=== PATIENT | female | born 1995 | race Caucasian/White ===

== ENCOUNTER 2016-10-13 20:37 | Emergency (ER) | payer OTHER, SELFPAY ==
[~2016-10-13 20:37] MED LIST: BIRTH CONTROL MED; NORCO 5/325 TAB1 TAB PO; TYLENOL #31 TA1 PO; [UNRECOGNIZED DRUG - REMARK]
[2016-10-13] MEDS ORDERED: CIPRO500 M2 PO (21:03)
[2016-10-13] MEDS ORDERED: IBUPROFEN200 M3 PO (21:03)
[2016-10-13 21:35] LABS: BASO % 0.2 % (0-2); EOS % 0.1 % (0-7); HCT-HEMATOCRIT 36.7 % (34.0-49.0); HGB-HEMOGLOBIN 12.3 gm/dl (12.0-15.5); IMMATURE GRANULOCYTES ABSOLUTE 0.01 tho/cmm (0-0.03); IMMATURE GRANULOCYTES PERCENT 0.1 % (0-0.3); LYMPH % 8.7 % (20-45); LYMPH ABSOLUTE COUNT 1.1 tho/cmm (0.8-4.5); MCH (MEAN CORPUSCULAR HGB) 28.9 pg (28.0-32.0); MCHC MEAN CORPUSCULAR HGB CONC 33.5 % (32.0-36.0); MCV (MEAN CELL VOLUME) 86.2 fl (82.0-96.0); MEAN PLATELET VOLUME 9.6 cmc (9.4-12.4); MONO % 14.4 % (0-12); MONOCYTE ABSOLUTE COUNT 1.7 tho/cmm (0.0-1.2); NEUTROPHIL ABSOLUTE COUNT 9.2 tho/cmm (1.6-8.0); NEUTROPHIL-AUTOMATED 9.2 tho/cmm (1.6-8.0); NEUTROPHILS % 76.5 % (40-80); PLATELET COUNT 198 tho/cmm (150-450); RED BLOOD COUNT 4.26 mil/cmm (4.00-5.20); RED CELL DISTRIBUTION WIDTH 12.9 % (12.4-16.4); WHITE BLOOD COUNT 12.1 tho/cmm (4.0-10.0)
[2016-10-13 21:49] LABS: PREGNANCY-SERUM NEGATIVE (NEGATIVE)
[2016-10-13 21:50] LABS: ANION GAP 14 mmol/L (0-20); BLOOD UREA NITROGEN 17 mg/dl (6-24); CALCIUM 8.5 mg/dl (8.5-10.5); CARBON DIOXIDE-VENOUS 23 mmol/L (22-32); CHLORIDE 107 mmol/l (96-110); CREATININE 1.65 mg/dl (0.50-1.10); GLUCOSE 109 mg/dL (70-110); POTASSIUM 3.5 mmol/L (3.7-5.1); SODIUM 140 mmol/L (135-145); eGFR VALUE FOR BLACK 50 mL/Min
[2016-10-13 21:50] LABS: URINE BILIRUBIN NEGATIVE (NEG); URINE BLOOD MODERATE (NEG); URINE GLUCOSE (UA) NEGATIVE (NEG); URINE KETONE NEGATIVE (NEG); URINE LEUKOCYTE ESTERASE NEGATIVE (NEG); URINE NITRITE NEGATIVE (NEG); URINE PROTEIN SMALL (NEG); URINE SPECIFIC GRAVITY 1.005 (1.003-1.030)
[2016-10-13 21:52] LABS: URINE APPEARANCE CLEAR; URINE COLOR YELLOW
[2016-10-13 21:58] LABS: URINE BACTERIA 1+
[2016-10-13] MEDS ORDERED: TRAMADOL HCL50 M2 PO (23:03)
[2016-10-13] MEDS ORDERED: ZOFRAN ODT4 MG PO (23:05)
== END 2016-10-14 ==
LOC: EDMED 20:37
PROVIDERS: Emergency Medicine
DX: R50.9 Fever, unspecified (principal); R11.2 Nausea with vomiting, unspecified; R10.30 Lower abdominal pain, unspecified; M54.9 Dorsalgia, unspecified
CPT/HCPCS: J1170; J2405